=== PATIENT | female | born 2000 | race Hispanic/Latino ===

== ENCOUNTER 2023-08-21 07:45 | Emergency (ER) | payer OTHER, SELFPAY ==
[2023-08-21] MEDS ORDERED: Ipratropium/Albuterol 3 ML NEB ONE (08:13)
[2023-08-21] MEDS ORDERED: guaiFENesin ER 600 MG TAB ONE (08:35)
[2023-08-21 08:49] LABS: ALT (SGPT) 13 U/L (8-55); AST (SGOT) 16 U/L (5-34); Albumin 4.1 g/dL (3.5-5.0); Alkaline Phosphatase 70 U/L (40-110); Anion Gap 18 mmol/L (10-20); BUN (Urea Nitrogen) 6 mg/dL (7.0-18.7); Bilirubin, Total 0.5 mg/dL (0.2-1.2); Calc. Creatinine Clearance 0 mL/min (70-130); Calcium 9.2 mg/dL (7.8-10.44); Carbon Dioxide 20 mmol/L (22-29); Chloride 104 mmol/L (98-107); Estimated GFR 117; Globulin 4.2 g/dL (2.4-3.5); Glucose 94 mg/dL (70-105); Potassium 3.6 mmol/L (3.5-5.1); Protein, Total 8.3 g/dL (6.0-8.3); Sodium 138 mmol/L (136-145)
[2023-08-21 08:51] LABS: BHCG - Serum Negative (NEGATIVE); Pregs Control Bar Appear? YES (CONTROL BAR)
[2023-08-21 08:53] LABS: #Basophils 0.1 thou/uL (0.0-0.2); #Eosinphils 0.3 thou/uL (0.0-0.7); #Lymphocytes 1.6 thou/uL (1.20-3.40); #Monocytes 0.8 thou/uL (0.11-0.59); #Neutrophils 8.5 thou/uL (1.40-6.50); %Basophils 0.6 % (0.0-1.0); %Lymphocytes 13.9 % (21.0-51.0); %Monocytes 7.2 % (0.0-10.0); %Neutrophils 75.2 % (42.0-75.0); Hematocrit 43.3 % (36.0-47.0); Hemoglobin 13.5 g/dL (12.0-16.0); Mean Corpuscular HGB CONC 31.1 g/dL (32.0-36.0); Mean Corpuscular Hemoglobin 26.7 pg (27.0-31.0); Mean Corpuscular Volume 85.8 fl (78.0-98.0); Mean Platelet Volume 7.3 fL (7.4-10.4); Platelet Count 299 10x3/uL (130-400); RBC Distribution Width 12.5 % (11.5-14.5); Red Blood Cell (RBC) Count 5.05 mill/uL (4.20-5.40); White Blood Cell (WBC) Count 11.2 10x3/uL (4.8-10.8)
[2023-08-21 08:57] LABS: Bilirubin Small (Negative); Blood, Urine Trace (Negative); Glucose, Urine (Dipstick) Negative (Negative); Ketone, Urine 80 mg/dL (Negative); Leukocyte Trace (Negative); Nitrite Negative (Negative); Protein, Urine (Dipstick) 30 mg/dL (Neg-Trace)
[2023-08-21 09:02] LABS: Clarity Hazy (Clear)
[2023-08-21] MEDS ORDERED: Ketorolac Tromethamine 30 MG (1 mL) VIAL ONE (09:08)
[2023-08-21] MEDS ORDERED: Sodium Chloride 0.9% 1,000 ML ONE (09:08)
[2023-08-21 09:11] LABS: Bacteria/HPF Rare-Few HPF (None Seen); CAUTI Indications for Culture Fever or rigors; RBC/HPF 0-3 HPF (0-3); Squamous Epithelial 0-3 HPF (0-3); Transitional Epithelial 0-3 HPF (None Seen)
[2023-08-21 09:12] LABS: Specific Gravity, Urine 1.029 (1.002-1.036)
[2023-08-21 09:13] LABS: Urine Culture Reflex No No
[2023-08-21 09:30] LABS: Influenza A by NAA Not Detected (NotDetected); Influenza B by NAA Not Detected (NotDetected); SARS-CoV-2 NAA Rapid Test Not Detected (NotDetected)
[2023-08-21] MEDS ORDERED: Acetaminophen 500 MG TAB ONE (09:50)
[2023-08-21] MEDS ORDERED: cefTRIAXone\\ROCEPHIN 1 GM in Sodium Chloride 0.9% 100 ML IVPB SCH (10:00)
== END 2023-08-21 10:27 | disposition home or self-care (01) ==
LOC: NAV ERS 07:45
DX: J18.9 Pneumonia, unspecified organism (principal); R11.2 Nausea with vomiting, unspecified
CPT/HCPCS: 71046; 80053; 81001; 83605; 84703; 85025; 87070; 87205; 94640; 96361; 96365; 96375; J0696; J1885; J3490; J7050; J7620

== ENCOUNTER 2023-08-25 21:31 | Emergency (ER) | payer SELFPAY ==
[2023-08-25] MEDS ORDERED: Cefdinir 300 MG CAP ONE (22:02)
[2023-08-25] MEDS ORDERED: Ipratropium/Albuterol 3 ML NEB ONE (22:02)
[2023-08-25] MEDS ORDERED: Benzonatate 100 MG CAP ONE (22:02)
== END 2023-08-25 22:19 | disposition home or self-care (01) ==
LOC: NAV ERS 21:31
DX: J18.9 Pneumonia, unspecified organism (principal); G44.209 Tension-type headache, unspecified, not intractable
CPT/HCPCS: J7620

== ENCOUNTER 2025-01-17 10:07 | Emergency (ER) | payer SELFPAY | END 2025-01-17 11:53 | disposition home or self-care (01) | LOC: NAV ERS 10:07 | DX: R20.0 Anesthesia of skin (principal); R20.2 Paresthesia of skin; R06.00 Dyspnea, unspecified; R05.9 Cough, unspecified | CPT/HCPCS: 99283 ==